=== PATIENT | male | born 1945 | race African-American/Black ===

== ENCOUNTER 2018-03-11 21:08 | Inpatient (IN) | payer MEDICARE, MEDICAID ==
[~2018-03-11] VITALS: Ht 177.8 cm; Wt 61.2 kg
[~2018-03-11 21:08] MED LIST: CARV3.122 PO; LOSA100T7 PO; TAMS0.4C2 PO
[2018-03-11 22:53] LABS: BASOPHILS # (AUTO) 0.02 x10^3/uL (0-0.1); BASOPHILS % (AUTO) 0 % (0-1); EOSINOPHILS # (AUTO) 0.02 x10^3/uL (0-0.4); EOSINOPHILS % (AUTO) 0 % (1-7); LYMPHOCYTES # (AUTO) 0.86 x10^3/uL (1-3.4); LYMPHOCYTES % (AUTO) 8 % (22-44); MD NO; MEAN CORPUSCULAR HEMOGLOBIN 27.6 pg (27.5-34.5); MEAN CORPUSCULAR HGB CONC 33.6 g/dL (33.2-36.2); MEAN CORPUSCULAR VOLUME 82.2 fL (81-97); MEAN PLATELET VOLUME 9.8 fL (7.4-10.4); MONOCYTES # (AUTO) 0.72 x10^3/uL (0.2-0.8); MONOCYTES % (AUTO) 6 % (2-9); NEUTROPHILS # (AUTO) 9.68 x10^3/uL (1.8-6.8); NEUTROPHILS % (AUTO) 86 % (42-75); PLATELET COUNT 179 x10^3/uL (130-400); RED BLOOD COUNT 4.97 x10^6/uL (4.38-5.82); RED CELL DISTRIBUTION WIDTH 16.2 % (9.4-14.8)
[2018-03-11 23:05] LABS: ALBUMIN 3.1 g/dL (3.4-5.0); ANION GAP 1 mmol/L (5-15); CALCIUM 8.3 mg/dL (8.5-10.1); CHLORIDE 105 mmol/L (98-107)
[2018-03-11 23:09] LABS: TROPONIN I < 0.015 ng/mL (0.000-0.045)
[2018-03-11] MEDS ORDERED: CEFTRIAXONE 1,000 MG in SODIUM CHLORIDE 0.9% 50 ML IVPB ONE (23:30)
[2018-03-11] MEDS ORDERED: CEFTRIAXONE PMX 1GM/50ML 50 ML ONE (23:30)
[2018-03-12] MEDS ORDERED: AZITHROMYCIN 500 MG in SODIUM CHLORIDE 0.9% 250 ML IV ONE (02:00)
[2018-03-12] MEDS ORDERED: ALBUTEROL/IPRATROPIUM 2.5MG/0.5MG, 3 ML NPPB ONE (02:00)
[2018-03-12] MEDS ORDERED: SODIUM CHLORIDE FLUSH 10ML SYR IVF PRN (02:00)
[2018-03-12] MEDS ORDERED: ALBUTEROL/IPRATROPIUM 2.5MG/0.5MG, 3 ML ONE (02:05)
[2018-03-12] MEDS ORDERED: BISACODYL 10 MG SUPP PR PRN (03:00)
[2018-03-12] MEDS ORDERED: ONDANSETRON 2MG/ML, 2ML IVPush PRN (03:00)
[2018-03-12] MEDS ORDERED: morphine SULFATE 10 MG/ML, 1ML IVPush PRN (03:00)
[2018-03-12] MEDS ORDERED: PROMETHAZINE 25 MG/ML, 1ML IM PRN (03:00)
[2018-03-12] MEDS ORDERED: OXYcodone IR 5MG TABLET PO PRN (03:00)
[2018-03-12] MEDS ORDERED: POLYETHYLENE GLYCOL 17 GM PACKET PO PRN (03:00)
[2018-03-12] MEDS ORDERED: ONDANSETRON ODT 4 MG PO PRN (03:00)
[2018-03-12] MEDS ORDERED: CEFTRIAXONE 1,000 MG in SODIUM CHLORIDE 0.9% 50 ML IV ONE (03:00)
[2018-03-12] MEDS ORDERED: hydrALAzine 20 MG/ML, 1ML IVPush PRN (03:00)
[2018-03-12] MEDS ORDERED: DOCUSATE 100 MG CAPSULE PO PRN (03:00)
[2018-03-12 03:08] VITALS: BP 124/83
[2018-03-12 03:08] LABS: HEMOGLOBIN A1C 6.1 % (4.2-6.3)
[2018-03-12 03:09] LABS: FREE T4 (FREE THYROXINE) 0.93 ng/dL (0.76-1.46); THYROID STIMULATING HORMONE 0.461 mIU/L (0.358-3.740)
[2018-03-12] MEDS: NICOTINE 7 MG/24 HR PATCH.TD24 TD SCH (03:48)
[2018-03-12] MEDS: ENOXAPARIN 40 MG/0.4 ML SQ SCH (03:48)
[2018-03-12] MEDS: SODIUM CHLORIDE 0.9% 1,000 ML IV SCH ×2 (03:49→12:22)
[2018-03-12 04:53] LABS: BASOPHILS # (AUTO) 0.02 x10^3/uL (0-0.1); BASOPHILS % (AUTO) 0 % (0-1); EOSINOPHILS # (AUTO) 0.01 x10^3/uL (0-0.4); EOSINOPHILS % (AUTO) 0 % (1-7); LYMPHOCYTES # (AUTO) 1.74 x10^3/uL (1-3.4); LYMPHOCYTES % (AUTO) 14 % (22-44); MD NO; MEAN CORPUSCULAR HEMOGLOBIN 27.9 pg (27.5-34.5); MEAN CORPUSCULAR HGB CONC 33.7 g/dL (33.2-36.2); MEAN CORPUSCULAR VOLUME 82.9 fL (81-97); MEAN PLATELET VOLUME 10.2 fL (7.4-10.4); MONOCYTES # (AUTO) 1.14 x10^3/uL (0.2-0.8); MONOCYTES % (AUTO) 9 % (2-9); NEUTROPHILS # (AUTO) 9.81 x10^3/uL (1.8-6.8); NEUTROPHILS % (AUTO) 77 % (42-75); PLATELET COUNT 151 x10^3/uL (130-400); RED BLOOD COUNT 5.16 x10^6/uL (4.38-5.82); RED CELL DISTRIBUTION WIDTH 16.4 % (9.4-14.8)
[2018-03-12 04:57] LABS: ALANINE AMINOTRANSFERASE 19 U/L (12-78); ALBUMIN 3.1 g/dL (3.4-5.0); CALCIUM 8.1 mg/dL (8.5-10.1); CHLORIDE 106 mmol/L (98-107); CHOLESTEROL, TOTAL 117 mg/dL (140-239); CREATININE 1.15 mg/dL (0.7-1.3)
[2018-03-12 05:01] LABS: ALKALINE PHOSPHATASE 120 U/L (45-117); BILIRUBIN,TOTAL 0.7 mg/dL (0.2-1.0); TOTAL PROTEIN 6.8 g/dL (6.4-8.2); TROPONIN I < 0.015 ng/mL (0.000-0.045)
[2018-03-12 05:12] LABS: ANION GAP 5 mmol/L (5-15); CHOL/HDL RATIO 1.4; HDL CHOL % 69 % (26-37); HDL CHOLESTEROL (DIRECT) 81 mg/dL (40-60); LDL CHOLESTEROL,CALCULATED 26 mg/dL (54-169); LDL/HDL RATIO 0.3 (0.5-3.0); TRIGLYCERIDES 48 mg/dL (50-200); VLDL CHOLESTEROL 10 mg/dL (0-25)
[2018-03-12 06:51] VITALS: BP 116/77
[2018-03-12] MEDS: LOSARTAN 50MG TABLET PO SCH (09:00)
[2018-03-12] MEDS: TAMSULOSIN 0.4 MG CAP.ER.24H PO SCH (09:01)
[2018-03-12] MEDS: CARVEDILOL 3.125 MG TABLET PO SCH ×2 (09:01→20:29)
[2018-03-12 11:53] LABS: TROPONIN I < 0.015 ng/mL (0.000-0.045)
[2018-03-12 12:35] VITALS: BP 91/53
[2018-03-12 12:37] LABS: MICROSCOPIC NOT IND
[2018-03-12 12:38] LABS: CULTURE INDICATED? NO
[2018-03-12 12:53] LABS: AMPHETAMINE SCREEN, URINE Positive (Negative); BARBITURATE SCREEN, URINE Negative (Negative); BENZODIAZEPINE SCREEN, URINE Negative (Negative); CANNABINOID SCREEN, URINE Negative (Negative); COCAINE SCREEN, URINE Negative (Negative); METHADONE SCREEN, URINE Negative (Negative); OPIATE SCREEN, URINE Negative (Negative)
[2018-03-12 18:52] VITALS: BP 96/68
[2018-03-12] MEDS: ACETAMINOPHEN 325 MG TABLET PO PRN (19:16)
[2018-03-12] MEDS: CEFTRIAXONE 2 GM in SODIUM CHLORIDE 0.9% 50 ML IV SCH (23:29)
[2018-03-13 01:20] VITALS: BP 104/68
[2018-03-13] MEDS: AZITHROMYCIN 500 MG in SODIUM CHLORIDE 0.9% 250 ML IV SCH (01:47)
[2018-03-13] MEDS: ENOXAPARIN 40 MG/0.4 ML SQ SCH (03:14)
[2018-03-13] MEDS: NICOTINE 7 MG/24 HR PATCH.TD24 TD SCH (03:14)
[2018-03-13 05:40] LABS: BASOPHILS % (AUTO) 0 % (0-1); EOSINOPHILS # (AUTO) 0.05 x10^3/uL (0-0.4); EOSINOPHILS % (AUTO) 1 % (1-7); LYMPHOCYTES # (AUTO) 1.09 x10^3/uL (1-3.4); LYMPHOCYTES % (AUTO) 21 % (22-44); MD NO; MEAN CORPUSCULAR HEMOGLOBIN 27.9 pg (27.5-34.5); MEAN CORPUSCULAR HGB CONC 32.8 g/dL (33.2-36.2); MEAN PLATELET VOLUME 9.9 fL (7.4-10.4); MONOCYTES # (AUTO) 0.75 x10^3/uL (0.2-0.8); MONOCYTES % (AUTO) 14 % (2-9); NEUTROPHILS # (AUTO) 3.32 x10^3/uL (1.8-6.8); NEUTROPHILS % (AUTO) 64 % (42-75); PLATELET COUNT 156 x10^3/uL (130-400); RED BLOOD COUNT 4.79 x10^6/uL (4.38-5.82); RED CELL DISTRIBUTION WIDTH 16.2 % (9.4-14.8)
[2018-03-13 05:48] LABS: CHLORIDE 107 mmol/L (98-107)
[2018-03-13 05:56] LABS: ALBUMIN 2.8 g/dL (3.4-5.0); ANION GAP 6 mmol/L (5-15); CALCIUM 8.7 mg/dL (8.5-10.1); CREATININE 1.04 mg/dL (0.7-1.3)
[2018-03-13 06:33] VITALS: BP 130/86
[2018-03-13] MEDS: LOSARTAN 50MG TABLET PO SCH (09:10)
[2018-03-13] MEDS: CARVEDILOL 3.125 MG TABLET PO SCH ×2 (09:11→21:00)
[2018-03-13] MEDS: TAMSULOSIN 0.4 MG CAP.ER.24H PO SCH (09:11)
[2018-03-13 14:24] VITALS: BP 106/67
[2018-03-13] MEDS: ACETAMINOPHEN 325 MG TABLET PO PRN ×2 (19:12→23:34)
[2018-03-13 19:22] VITALS: BP 122/78
[2018-03-13] MEDS: CEFTRIAXONE 2 GM in SODIUM CHLORIDE 0.9% 50 ML IV SCH (23:28)
[2018-03-14] MEDS: AZITHROMYCIN 500 MG in SODIUM CHLORIDE 0.9% 250 ML IV SCH (01:30)
[2018-03-14 01:47] VITALS: BP 111/76
[2018-03-14] MEDS: NICOTINE 7 MG/24 HR PATCH.TD24 TD SCH (03:15)
[2018-03-14] MEDS: ENOXAPARIN 40 MG/0.4 ML SQ SCH (03:15)
[2018-03-14 05:51] LABS: CHLORIDE 108 mmol/L (98-107)
[2018-03-14 05:58] LABS: ALBUMIN 2.6 g/dL (3.4-5.0); ANION GAP 6 mmol/L (5-15); CALCIUM 8.4 mg/dL (8.5-10.1); CREATININE 1.02 mg/dL (0.7-1.3)
[2018-03-14 08:23] VITALS: BP 104/64
[2018-03-14] MEDS: TAMSULOSIN 0.4 MG CAP.ER.24H PO SCH (08:50)
[2018-03-14] MEDS: LOSARTAN 50MG TABLET PO SCH (08:52)
[2018-03-14] MEDS: CARVEDILOL 3.125 MG TABLET PO SCH (08:52)
[2018-03-14 10:31] VITALS: BP 118/78
[2018-03-14 15:45] VITALS: BP 119/75
[2018-03-14 18:57] VITALS: BP 108/70
[2018-03-14] MEDS: CEFTRIAXONE 2 GM in SODIUM CHLORIDE 0.9% 50 ML IV SCH (23:36)
[2018-03-15] MEDS: AZITHROMYCIN 500 MG in SODIUM CHLORIDE 0.9% 250 ML IV SCH (01:30)
[2018-03-15 02:08] VITALS: BP 122/73
[2018-03-15] MEDS ORDERED: AZITHROMYCIN 500 MG TABLET PO SCH (03:01)
[2018-03-15] MEDS: ENOXAPARIN 40 MG/0.4 ML SQ SCH (03:32)
[2018-03-15] MEDS: NICOTINE 7 MG/24 HR PATCH.TD24 TD SCH (03:32)
[2018-03-15 06:06] LABS: ALBUMIN 2.9 g/dL (3.4-5.0); ANION GAP 8 mmol/L (5-15); CALCIUM 8.7 mg/dL (8.5-10.1); CHLORIDE 106 mmol/L (98-107)
[2018-03-15 06:07] LABS: CREATININE 0.94 mg/dL (0.7-1.3)
[2018-03-15 06:09] LABS: BASOPHILS # (AUTO) 0.01 x10^3/uL (0-0.1); BASOPHILS % (AUTO) 0 % (0-1); EOSINOPHILS # (AUTO) 0.08 x10^3/uL (0-0.4); EOSINOPHILS % (AUTO) 2 % (1-7); LYMPHOCYTES # (AUTO) 1.17 x10^3/uL (1-3.4); LYMPHOCYTES % (AUTO) 25 % (22-44); MD NO; MEAN CORPUSCULAR HEMOGLOBIN 27.7 pg (27.5-34.5); MEAN PLATELET VOLUME 10.5 fL (7.4-10.4); MONOCYTES # (AUTO) 0.78 x10^3/uL (0.2-0.8); MONOCYTES % (AUTO) 17 % (2-9); NEUTROPHILS # (AUTO) 2.69 x10^3/uL (1.8-6.8); NEUTROPHILS % (AUTO) 57 % (42-75); PLATELET COUNT 204 x10^3/uL (130-400); RED BLOOD COUNT 4.72 x10^6/uL (4.38-5.82); RED CELL DISTRIBUTION WIDTH 16.3 % (9.4-14.8)
[2018-03-15 07:59] VITALS: BP 129/77
[2018-03-15] MEDS: TAMSULOSIN 0.4 MG CAP.ER.24H PO SCH (08:53)
[2018-03-15] MEDS: LOSARTAN 50MG TABLET PO SCH (08:53)
[2018-03-15 13:32] VITALS: BP 111/71
[2018-03-15] MEDS ORDERED: LEVO500T47 PO (15:56)
== END 2018-03-15 17:18 | disposition home or self-care (01) | DRG 871 ==
LOC: ED 22:18 → EDIP 03-12 01:58 → 4NOR 03-12 02:55 → DCLOUNGE 03-15 17:07
PROVIDERS: ADMIT Internal Medicine; ATTEND Hospitalist
DX: A41.9 Sepsis, unspecified organism (principal); J18.9 Pneumonia, unspecified organism; J96.01 Acute respiratory failure with hypoxia; E43 Unspecified severe protein-calorie malnutrition; J44.0 Chronic obstructive pulmonary disease with (acute) lower respiratory infection; Z68.1 Body mass index [BMI] 19.9 or less, adult; F15.10 Other stimulant abuse, uncomplicated; F17.200 Nicotine dependence, unspecified, uncomplicated; I10 Essential (primary) hypertension; N40.0 Benign prostatic hyperplasia without lower urinary tract symptoms; Z79.899 Other long term (current) drug therapy; Z71.6 Tobacco abuse counseling
CPT/HCPCS: 36415; 70450; 71045; 80048; 80053; 80061; 80307; 81003; 82040; 83036; 83735; 83880; 84439; 84443; 84484; 85025; 87040; 87070; 87205; 93005; 93306; 94640; 96365; 96375; G0378; J0456; J0696; J1650; J7620; J7030; J7050; Q0177

== ENCOUNTER 2019-09-24 20:57 | Emergency (ER) | payer MEDICARE, MEDICAID ==
[~2019-09-24] VITALS: Ht 177.8 cm; Wt 67.8 kg
[~2019-09-24 20:57] MED LIST changes: +LEVO500T47 PO; +LOSA100T14 PO; -LOSA100T7 PO
--- NOTE | 2019-09-24 21:54 | NUR ---
THIS IS A 74 YO MALE COMING IN FOR PERSISTANT COUGH FOR "A WHILE, ITS PERSISTANTING". HAD NASAL DRIP BUT "NOW ITS FLOWING". CHILLS, BODY ACHES, FATIGUE. NON OXYGEN DEPENDENT COPD, HX OF TB "30 YEARS AGO". PATIENT SPEAKING IN FULL SENTENCES, A&OX4, RESPIRATIONS EVEN AND UNLABORED. LUNG SOUNDS CLEAR THROUGHOUT. PATIENT PLACED ON ALL MONITORING. SINUS ARRHYTHMIA PRESENT. SPO2 AT 90% ON RA. ABOUT TO LEAVE ROOM PATIENT DESAT TO 77% WHILE STARTING TO FALL ASLEEP. PLACED ON 2.5L NC, BACK UP TO 98%.
[2019-09-24 22:37] LABS: BASOPHILS # (AUTO) 0.02 x10^3/uL (0-0.1); BASOPHILS % (AUTO) 1 % (0-1); EOSINOPHILS # (AUTO) 0.11 x10^3/uL (0-0.4); EOSINOPHILS % (AUTO) 3 % (1-7); LYMPHOCYTES # (AUTO) 1.73 x10^3/uL (1-3.4); LYMPHOCYTES % (AUTO) 48 % (22-44); MD NO; MEAN CORPUSCULAR HEMOGLOBIN 27.1 pg (27.5-34.5); MEAN CORPUSCULAR HGB CONC 32.1 g/dL (33.2-36.2); MEAN CORPUSCULAR VOLUME 84.4 fL (81-97); MEAN PLATELET VOLUME 10.5 fL (7.4-10.4); MONOCYTES # (AUTO) 0.42 x10^3/uL (0.2-0.8); MONOCYTES % (AUTO) 12 % (2-9); NEUTROPHILS % (AUTO) 36 % (42-75); PLATELET COUNT 174 x10^3/uL (130-400); RED CELL DISTRIBUTION WIDTH 16.5 % (9.4-14.8)
[2019-09-24 22:51] LABS: ALBUMIN 3.4 g/dL (3.4-5.0); ANION GAP 3 mmol/L (5-15); CALCIUM 8.6 mg/dL (8.5-10.1); CHLORIDE 107 mmol/L (98-107); CREATININE 1.22 mg/dL (0.7-1.3)
[2019-09-24 23:13] VITALS: BP 111/78
--- NOTE | 2019-09-24 23:18 | NUR ---
PATIENT AT 99% RA WHILE AWAKE, DESAT WHILE SLEEPING. ERP WITNESSED AND IN ROOM.
--- NOTE | 2019-09-24 23:21 | NUR ---
VSS, NAD, ERP PLAN TO DISCHARGE
--- NOTE | 2019-09-24 23:40 | NUR ---
Patient/Caregiver given discharge instructions and they have confirmed that they understand the instructions. Patient ambulatory with steady gait.
== END 2019-09-24 23:41 | disposition home or self-care (01) ==
LOC: ED 21:46
DX: J44.1 Chronic obstructive pulmonary disease with (acute) exacerbation (principal); I10 Essential (primary) hypertension
CPT/HCPCS: 36415; 71045; 80048; 82040; 85025; 99284

== ENCOUNTER 2020-05-25 10:24 | Emergency (ER) | payer MEDICARE, MEDICAID ==
[~2020-05-25] VITALS: Ht 177.8 cm; Wt 64.2 kg
[2020-05-25] MEDS ORDERED: AZITHROMYCIN 250 MG TABLET ONE (11:05)
[2020-05-25] MEDS ORDERED: CEFTRIAXONE 250 MG ONE (11:05)
[2020-05-25] MEDS ORDERED: CEFTRIAXONE 250 MG IM ONE (11:30)
[2020-05-25] MEDS ORDERED: BICILLIN-LA 2,400,000 UNITS/4 ML IM ONE (11:30)
[2020-05-25] MEDS ORDERED: AZITHROMYCIN 500 MG TABLET PO ONE (11:30)
--- NOTE | 2020-05-25 11:34 | NUR ---
AWAITING MED FROM PHARMACY.
--- NOTE | 2020-05-25 12:06 | NUR ---
PT WAKES EASILY FROM SLEEP, ASKS RN TO WAIT FOR MED ADMINISTRATION. EDUCATED ON NEED FOR MEDICATION SINCE HE HAS REPORTED HIS SEXUAL PARTNER IS A CONFIRMED SYPHILIS CASE.
--- NOTE | 2020-05-25 12:20 | NUR ---
PT REMINDED OF NEED FOR UA. PO FLUIDS PROVIDED.
--- NOTE | 2020-05-25 12:20 | NUR ---
SIDE RAILS UP, CALL LIGHT IN REACH.
--- NOTE | 2020-05-25 13:48 | NUR ---
CALL TO LAB REGARDING UA PT REMAINS ASLEEP RESTING COMFORTABLY IN BED.
[2020-05-25 13:50] LABS: MICROSCOPIC INDICATED
[2020-05-25] MEDS ORDERED: THIAMINE 100 MG/ML, 2ML IM ONE (14:00)
[2020-05-25 14:16] VITALS: BP 134/98
== END 2020-05-25 14:26 | disposition home or self-care (01) ==
LOC: ED 14:10
DX: A53.9 Syphilis, unspecified (principal); Z20.2 Contact with and (suspected) exposure to infections with a predominantly sexual mode of transmission; J44.9 Chronic obstructive pulmonary disease, unspecified; I10 Essential (primary) hypertension
CPT/HCPCS: 81001; 87491; 87591; 96372; 99284; J0561; J0696